=== PATIENT | female | born 1940 | race Caucasian/White ===

== ENCOUNTER 2019-09-18 01:02 | Outpatient (CLI) | payer MEDICARE, BC, SELFPAY ==
--- NOTE | 2019-09-18 14:30 | DI.DEXA_ITS ---
EXAM: XR DEXA BONE DENSITY W/WO ROBERT CLINICAL HISTORY: BREAST CA,PENITENTIARY USE AROMATASES INHIBITORS,Z79.811 TECHNIQUE: COMPARISON: No exams were available for comparison FINDINGS: Lateral Spine Image: Unremarkable. No compression deformities identified. Left/Right Hip: Bilateral hip replacements. Lumbar Spine: Total T-Score: 2.5 Total Z-Score: 5.1 T- and Z-scores: Within normal limits. IMPRESSION: No evidence of osteoporosis.
== END 2019-09-18 01:22 ==
PROVIDERS: PCP Neuromusculoskeletal Medicine & OMM; Visit Provider Internal Medicine Hematology & Oncology
DX: Z79.811 Long term (current) use of aromatase inhibitors (principal)
CPT/HCPCS: 77080